=== PATIENT | female | born 2000 | race African-American/Black ===

== ENCOUNTER 2019-11-24 23:20 | Observation (INO) | payer MEDICAID ==
[~2019-11-24] VITALS: Ht 167.6 cm; Wt 80.7 kg
== END 2019-11-25 02:09 | disposition home or self-care (01) ==
LOC: 8 EST LDRP 23:20
PROVIDERS: ADMIT Obstetrics & Gynecology; ATTEND Obstetrics & Gynecology
DX: O36.8130 Decreased fetal movements, third trimester, not applicable or unspecified (principal); Z3A.30 30 weeks gestation of pregnancy
CPT/HCPCS: 76805; 76818; 99281; G0378

== ENCOUNTER 2020-01-20 18:41 | Inpatient (IN) | payer SELFPAY ==
[~2020-01-20] VITALS: Ht 165.1 cm; Wt 79.8 kg
[2020-01-20 20:30] VITALS: BP 131/82
[2020-01-20] MEDS ORDERED: DEXT 5%/LR + PITOCIN 20UNITS/L 1,000 ML IV SCH ×2 (20:56→22:08)
[2020-01-20] MEDS ORDERED: IBUPROFEN 400MG TABLET PO PRN (21:00)
[2020-01-20] MEDS ORDERED: RHO(D) IMMUNE GLOBULIN 300 MCG/SYR IM PRN (21:00)
[2020-01-20] MEDS ORDERED: IBUPROFEN 800MG TABLET PO PRN (21:00)
[2020-01-20 21:30] VITALS: BP 110/78
[2020-01-20 22:42] LABS: CLARITY URINE CLOUDY (CLEAR); COLOR URINE RED (YELLOW); KETONES URINE NEGATIVE (NEGATIVE); LEUKOCYTE ESTERASE URINE TRACE (NEGATIVE); NITRITE URINE NEGATIVE (NEGATIVE); OCCULT BLOOD URINE 3+ (NEGATIVE); PH URINE 7.5 (4.5-8.0); PROTEIN URINE TRACE (NEGATIVE); SPECIFIC GRAVITY URINE 1.013 (1.005-1.030); UROBILINOGEN URINE 0.2 E.U./dL (0.2-1.0)
[2020-01-20 22:45] LABS: CHLORIDE 104 mEq/L (98-107)
[2020-01-20 22:52] LABS: *BARBITURATES SCREEN URINE NEGATIVE (NEGATIVE); *BENZODIAZEPINES SCREEN URINE NEGATIVE (NEGATIVE); *COCAINE SCREEN URINE NEGATIVE (NEGATIVE)
[2020-01-20 22:53] LABS: CANNABINOID URINE SCREEN NEGATIVE (NEGATIVE); METHADONE URINE SCREEN NEGATIVE (NEGATIVE); PHENCYCLIDINE URINE SCREEN NEGATIVE (NEGATIVE)
[2020-01-20 22:58] LABS: *AMPHETAMINES SCREEN URINE PRESUMTIVE POSITIVE (NEGATIVE)
[2020-01-20 23:01] LABS: BASOPHILS % 0.3 % (0.0-2.0); EOSINOPHILS % 0.5 % (0.0-5.0); HEMATOCRIT. 43.1 % (36.0-48.0); HEMOGLOBIN. 14.9 g/dL (12.0-16.0); LYMPHOCYTES % 11.3 % (20.0-50.0); MEAN CORPUSCULAR VOLUME 92.8 fL (81.0-99.0); MONOCYTES % 4.8 % (2.0-8.0); NEUTROPHILS % 83.1 % (40.0-76.0); PLATELET 172 x1000/uL (130-400); RED BLOOD CELL COUNT 4.64 mill/uL (4.2-5.4); RED CELL DISTRIBUTION WIDTH 12.9 % (11.6-14.6)
[2020-01-20 23:12] LABS: HEPATITIS B SURFACE ANTIGEN NEGATIVE
[2020-01-20 23:16] LABS: INR 0.9; PARTIAL THROMBOPLASTIN TIME 26.7 sec (23.4-31.0); PROTHROMBIN TIME 9.9 sec (9.6-11.0)
[2020-01-21 03:00] VITALS: BP 114/61
[2020-01-21 07:26] LABS: BASOPHILS % 0.3 % (0.0-2.0); EOSINOPHILS % 1.1 % (0.0-5.0); HEMATOCRIT. 34.7 % (36.0-48.0); HEMOGLOBIN. 12.1 g/dL (12.0-16.0); LYMPHOCYTES % 20.8 % (20.0-50.0); MEAN CORPUSCULAR HEMOGLOBIN 32.2 pg (28.0-32.0); MEAN CORPUSCULAR VOLUME 92.2 fL (81.0-99.0); MONOCYTES % 7.6 % (2.0-8.0); NEUTROPHILS % 70.2 % (40.0-76.0); PLATELET 131 x1000/uL (130-400); RED BLOOD CELL COUNT 3.76 mill/uL (4.2-5.4); RED CELL DISTRIBUTION WIDTH 12.9 % (11.6-14.6)
[2020-01-21 08:00] VITALS: BP 115/67
[2020-01-21 15:44] VITALS: BP 115/72
[2020-01-21] MEDS ORDERED: TETANUS, DIPHTHERIA, PERTUSSIS VAC/PF 0.5ML (>7YR OLD) IM ONE (17:00)
[2020-01-21 19:01] LABS: OPIATES URINE SCREEN NEGATIVE (NEGATIVE)
[2020-01-21 19:25] VITALS: BP 130/79
[2020-01-21 23:45] VITALS: BP 114/77
[2020-01-22] MEDS ORDERED: PREN-135 MT (07:00)
[2020-01-22] MEDS ORDERED: IBUP-2030 PO (07:00)
[2020-01-22] MEDS ORDERED: FERR325T6 MT (07:00)
[2020-01-22 07:30] VITALS: BP 108/61
[2020-01-25 04:11] LABS: AMPHETAMINE CONF URINE Positive (.)
== END 2020-01-22 13:30 | disposition home or self-care (01) | DRG 561 ==
LOC: 8 EST LDRP 18:41 → 8EST 21:10
PROVIDERS: ADMIT Obstetrics & Gynecology; ATTEND Obstetrics & Gynecology
DX: Z39.0 Encounter for care and examination of mother immediately after delivery (principal); F16.10 Hallucinogen abuse, uncomplicated; O99.325 Drug use complicating the puerperium; F15.10 Other stimulant abuse, uncomplicated
CPT/HCPCS: 36415; 80053; 80305; 80307; 80359; 81003; 85025; 86592; 86703; 86762; 86850; 86900; 87340; 99281; J2590

== ENCOUNTER 2022-03-31 13:55 | Emergency (ER) | payer SELFPAY ==
[~2022-03-31] VITALS: Ht 172.7 cm; Wt 78.0 kg
[~2022-03-31 13:55] MED LIST: FERR325T6 MT; IBUP-2030 PO; PREN-135 MT
[2022-03-31 13:58] VITALS: BP 140/99
[2022-03-31] MEDS ORDERED: LIDOCAINE HCL/EPINEPHRINE 1%-EPI 1:100,000 50 ML VIAL INFIL ONE (14:15)
== END 2022-03-31 14:51 | disposition left against medical advice (07) ==
LOC: ER 14:43
DX: L02.612 Cutaneous abscess of left foot (principal)
CPT/HCPCS: 99283

== ENCOUNTER 2023-04-05 20:52 | Observation (INO) | payer MEDICAID ==
[~2023-04-05] VITALS: Ht 160 cm; Wt 68.0 kg
[2023-04-05 20:55] VITALS: O2SAT 100
[2023-04-05 21:47] VITALS: BP 128/94; PULSE 104; RESP 16; TEMP 98.4
[2023-04-05 22:00] LABS: BASOPHILS % 0.6 % (0.0-2.0); EOSINOPHILS % 1.9 % (0.0-5.0); HEMATOCRIT. 23.4 % (36.0-48.0); HEMOGLOBIN. 7.2 g/dL (12.0-16.0); MEAN CORPUSCULAR HEMOGLOBIN 22.3 pg (28.0-32.0); MEAN CORPUSCULAR VOLUME 72.4 fL (81.0-99.0); MEAN PLATELET VOLUME 10.1 fl (7.4-10.4); NEUTROPHILS % 63.5 % (40.0-76.0); PLATELET 162 x1000/uL (130-400); RED BLOOD CELL COUNT 3.23 mill/uL (4.2-5.4); RED CELL DISTRIBUTION WIDTH 16.9 % (11.6-14.6)
[2023-04-05 22:21] LABS: CHLORIDE 108 mEq/L (98-107)
[2023-04-05 22:47] LABS: B-HCG QUANTITATIVE 29077 mIU/mL (<3)
[2023-04-06 00:01] LABS: CLARITY URINE TURBID (CLEAR); COLOR URINE YELLOW (YELLOW); KETONES URINE NEGATIVE (NEGATIVE); LEUKOCYTE ESTERASE URINE 3+ (NEGATIVE); NITRITE URINE NEGATIVE (NEGATIVE); OCCULT BLOOD URINE 3+ (NEGATIVE); PH URINE 6.5 (4.5-8.0); PROTEIN URINE 1+ (NEGATIVE); SPECIFIC GRAVITY URINE 1.011 (1.005-1.030); UROBILINOGEN URINE 0.2 E.U./dL (0.2-1.0)
[2023-04-06 00:13] LABS: *BARBITURATES SCREEN URINE NEGATIVE (NEGATIVE); *BENZODIAZEPINES SCREEN URINE NEGATIVE (NEGATIVE); *COCAINE SCREEN URINE NEGATIVE (NEGATIVE); CANNABINOID URINE SCREEN NEGATIVE (NEGATIVE); METHADONE URINE SCREEN NEGATIVE (NEGATIVE); OPIATES URINE SCREEN NEGATIVE (NEGATIVE); PHENCYCLIDINE URINE SCREEN NEGATIVE (NEGATIVE)
[2023-04-06 00:19] LABS: *AMPHETAMINES SCREEN URINE PRESUMTIVE POSITIVE (NEGATIVE)
[2023-04-06] MEDS ORDERED: CEFAZOLIN 1000MG PREMIX 50 ML IV ONE (01:00)
[2023-04-06] MEDS ORDERED: SODIUM CHLORIDE 0.9% 1,000 ML IV ONE (01:00)
[2023-04-06] MEDS ORDERED: LACTATED RINGERS 1,000 ML IV SCH (02:45)
[2023-04-06] MEDS: METRONIDAZOLE 500 MG PREMIX 100 ML IV NR (03:26)
== END 2023-04-06 06:00 | disposition home or self-care (01) ==
LOC: ER 20:52 → 8 EST LDRP 04-06 01:21
PROVIDERS: ADMIT Obstetrics & Gynecology; ATTEND Obstetrics & Gynecology
DX: O23.43 Unspecified infection of urinary tract in pregnancy, third trimester (principal); O62.9 Abnormality of forces of labor, unspecified; O26.893 Other specified pregnancy related conditions, third trimester; R10.9 Unspecified abdominal pain; F17.210 Nicotine dependence, cigarettes, uncomplicated; F15.90 Other stimulant use, unspecified, uncomplicated; O09.33 Supervision of pregnancy with insufficient antenatal care, third trimester; O13.3 Gestational [pregnancy-induced] hypertension without significant proteinuria, third trimester; O99.013 Anemia complicating pregnancy, third trimester; D64.9 Anemia, unspecified; Z59.00 Homelessness unspecified; Z98.891 History of uterine scar from previous surgery; Z79.899 Other long term (current) drug therapy
CPT/HCPCS: 36415; 59025; 76805; 76817; 76818; 80053; 80305; 80320; 81003; 84702; 85025; 86850; 86900; 86901; 87086; 96361; 96365; 96367; 99284; J0690; J3490; J7030; 96360; 99281; G0378; G0480

== ENCOUNTER 2023-11-10 15:34 | Emergency (ER) | payer MEDICAID ==
[~2023-11-10] VITALS: Ht 167.6 cm; Wt 66.0 kg
[2023-11-10 16:48] VITALS: BP 136/76; PULSE 109; RESP 16; TEMP 98.2; O2SAT 100
[2023-11-10] MEDS ORDERED: BACITRACIN ZINC OINT UDPKT TOP ONE (17:30)
[2023-11-10] MEDS ORDERED: LIDOCAINE HCL/PF 1% 10 MG/ML 5ML VIAL INFIL ONE (17:30)
[2023-11-10] MEDS: HYDROCODONE/ACETAMINOPHEN 5/325MG TABLET PO ONE (17:53)
[2023-11-10] MEDS: IBUPROFEN 600MG TABLET PO ONE (17:53)
== END 2023-11-10 18:56 | disposition home or self-care (01) ==
LOC: ER 15:34
DX: M79.645 Pain in left finger(s) (principal); L03.012 Cellulitis of left finger; F15.10 Other stimulant abuse, uncomplicated
CPT/HCPCS: 81025; 73130; 99283; J3490; Z7610 ×3

== ENCOUNTER 2023-12-28 04:33 | Emergency (ER) | payer MEDICAID ==
[~2023-12-28] VITALS: Ht 170.2 cm; Wt 85.0 kg
[2023-12-28 05:06] VITALS: BP 137/76; PULSE 108; RESP 12; TEMP 98.3; O2SAT 100
[2023-12-28 05:59] LABS: CLARITY URINE CLOUDY (CLEAR); COLOR URINE DARK YELLOW (YELLOW); GLUCOSE URINE NEGATIVE (NEGATIVE); KETONES URINE TRACE (NEGATIVE); LEUKOCYTE ESTERASE URINE 1+ (NEGATIVE); NITRITE URINE NEGATIVE (NEGATIVE); OCCULT BLOOD URINE NEGATIVE (NEGATIVE); PH URINE 5.5 (4.5-8.0); PROTEIN URINE 2+ (NEGATIVE); SPECIFIC GRAVITY URINE 1.038 (1.005-1.030)
[2023-12-28 06:12] LABS: BACTERIA URINE TRACE; RBC URINE 0-2 /hpf (0-2); SQUAMOUS EPITHELIAL CELL URINE FEW /lpf (RARE/1+); WBC URINE 0-2 /hpf (0-2)
[2023-12-28] MEDS ORDERED: DOXY100T28 MT (06:17)
[2023-12-28] MEDS: CEFTRIAXONE SODIUM 500MG VIAL IM ONE (06:51)
[2023-12-28] MEDS: DOXYCYCLINE HYCLATE 100MG CAPSULE PO ONE (06:51)
[2023-12-28 14:22] LABS: UCG SCREEN NEGATIVE
== END 2023-12-28 06:53 | disposition home or self-care (01) ==
LOC: ER 05:05
DX: A64 Unspecified sexually transmitted disease (principal); F15.10 Other stimulant abuse, uncomplicated
CPT/HCPCS: 81003; 81025; 96372; 99283; J0696; Z7610